=== PATIENT | female | born 1995 | race Caucasian/White ===

== ENCOUNTER → 2020-02-25 18:03 | Outpatient (CLI) | payer OTHER, SELFPAY ==
[2020-02-25 14:31] VITALS: BMI 26.4
[2020-03-01 03:06] LABS: Chlamydia By Nucleic Acid AMP Negative (Negative)
[2020-03-01 11:17] LABS: Gonococcus By Nucleic Acid AMP Negative (Negative)
== END ==
PROVIDERS: Referring Provider Nurse Practitioner Women's Health; Visit Provider Nurse Practitioner Women's Health
DX: N89.8 Other specified noninflammatory disorders of vagina (principal); Z11.3 Encounter for screening for infections with a predominantly sexual mode of transmission
CPT/HCPCS: 87070; 87205; 87491; 87591